=== PATIENT | female | born 1995 | race Caucasian/White ===

== ENCOUNTER 2025-02-20 08:50 | Outpatient (RCR) | payer SELFPAY | END 2025-03-13 23:59 | disposition home or self-care (01) | LOC: SPT 08:50 | PROVIDERS: Visit Provider Orthopaedic Surgery | DX: S89.92XD Unspecified injury of left lower leg, subsequent encounter (principal); X58.XXXD Exposure to other specified factors, subsequent encounter | CPT/HCPCS: 97110; 97112; 97161 ==